=== PATIENT | female | born 1965 ===

== ENCOUNTER → 2020-12-20 | Outpatient (CLI) | payer OTHER | END | disposition home or self-care (01) | LOC: XYW 16:20 | DX: R10.33 Periumbilical pain (principal); R19.5 Other fecal abnormalities; M51.37 Other intervertebral disc degeneration, lumbosacral region | CPT/HCPCS: 74176 ==

== ENCOUNTER 2024-11-11 09:48 | Outpatient (CLI) | payer OTHER ==
[2024-11-11 11:31] LABS: Hematocrit 44.2 % (36.0-46.0); Hemoglobin 15.0 g/dL (12.2-16.2); Mean Corpuscular Hemoglobin 29.7 pg (28.0-32.0); Mean Corpuscular Volume 87.7 fL (80.0-100.0); Nucleated Red Blood Cells % 0.1 %
[2024-11-11 11:38] LABS: Urine Protein, UAD Negative (Negative)
[2024-11-11 11:52] LABS: Alanine Aminotransferase 15 U/L (7-40); Albumin 4.7 g/dL (3.2-4.8); Alkaline Phosphatase 111 U/L (46-116); Anion Gap 6 (5-15); BUN/Creatinine Ratio 8.2 (10.0-20.0); Bilirubin, Total 0.6 mg/dL (0.2-1.0); Blood Urea Nitrogen 6 mg/dL (9-23); Calcium 10.0 mg/dL (8.7-10.4); Carbon Dioxide 31 mmol/L (20-31); Chloride 102 mmol/L (98-107); Cholesterol 225 mg/dL (< 200); Glucose 89 mg/dL (74-106); HDL Cholesterol 60 mg/dL (40-59); Potassium 3.9 mmol/L (3.5-5.1); Sodium 139 mmol/L (136-145); Total Protein 7.0 g/dL (5.7-8.2); Triglycerides 112 mg/dL (< 150)
[2024-11-11 11:55] LABS: Free T3 2.66 pg/mL (2.3-4.2)
[2024-11-11 11:56] LABS: Free T4 (Free Thyroxine) 0.87 ng/dL (0.89-1.76)
== END 2024-11-11 17:00 | disposition home or self-care (01) ==
LOC: LAB 09:48
PROVIDERS: ATTEND Internal Medicine Gastroenterology
DX: E03.9 Hypothyroidism, unspecified (principal); E55.9 Vitamin D deficiency, unspecified; R73.03 Prediabetes; Z13.220 Encounter for screening for lipoid disorders; Z00.00 Encounter for general adult medical examination without abnormal findings
CPT/HCPCS: 36415; 80053; 80061; 81001; 82306; 83036; 84439; 84443; 84481; 85025